=== PATIENT | female | born 1960 | race Hispanic/Latino ===

== ENCOUNTER 2018-09-05 20:47 | Emergency (ER) | payer MEDICARE ==
[2018-09-05] MEDS ORDERED: Naproxen 500 MG TAB PO ONE (23:40)
[2018-09-05] MEDS ORDERED: Oxycodone/Acetaminophen 5/325 mg Tab PO ONE (23:40)
--- NOTE | 2018-09-05 23:43 | ED PDOC ---
Upper Extremity Pain/Injury Time Seen by Provider: 09/05/18 23:18 Chief Complaint (Nursing): Upper Extremity Problem/Injury Chief Complaint (Provider): left wrist pain History Per: Patient History/Exam Limitations: no limitations Onset/Duration Of Symptoms: Hrs (3) Current Symptoms Are (Timing): Still Present Hands/Wrist (Pic): 1 - Tenderness, Swelling, Pain Worse W/Movement Additional Complaint(s): 57 y/o female presents for evaluation of left wrist pain x 3 hours. Patient states she tripped going down her stairs at home and landed with left hand facing downward. Patient reports left-sided weakness as a result of a CVA since 2012. Denies head injury, LOC, limitation of movement. Past Medical History Reviewed: Historical Data, Nursing Documentation, Vital Signs Vital Signs: Last Vital Signs Temp 97.7 F 09/05/18 22:22 Pulse 89 09/05/18 22:22 Resp 16 09/05/18 22:22 BP 131/88 09/05/18 22:22 Pulse Ox 96 09/05/18 22:22 - Medical History PMH: Anxiety (at home medication for this), CVA (2012 with left sided residual weakness, intermittent memory problems ), Depression (at home medication for this), Gastritis, HTN, Hypercholesterolemia, Hypothyroidism (post thyroidectomy), Pulmonary Embolism, Chronic Kidney Disease, TIA - Family History Family History: States: No Known Family Hx - Immunization History Hx Tetanus Toxoid Vaccination: Yes - Home Medications Home Medications: Ambulatory Orders Medication Instructions Recorded Balsalazide [Colazal] 2,250 mg PO TID 02/05/16 Budesonide [Uceris] 9 mg PO QOTHERDAY 02/05/16 Levothyroxine Sodium [Synthroid] 125 mcg PO DAILY 02/05/16 buPROPion XL [Wellbutrin XL] 300 mg PO DAILY 02/05/16 Alprazolam [Xanax] 0.5 mg PO BID PRN 02/06/16 Baclofen [Lioresal] 10 mg PO DAILY PRN 02/06/16 FLUoxetine [Prozac] 20 mg PO DAILY 02/06/16 Ciprofloxacin HCl [Cipro] 500 mg PO BID #28 tab 03/14/16 Naproxen [Naprosyn] 500 mg PO Q12 PRN #20 tablet 09/06/18 oxyCODONE/Acetaminophen [Percocet 1 ea PO Q6 PRN #12 tab 09/06/18 5/325 mg Tab] - Allergies Allergies/Adverse Reactions: Allergies Allergy/AdvReac Type Severity Reaction Status Date / Time No Known Allergies Allergy Verified 09/05/18 22:22 Review of Systems ROS Statement: Except As Marked, All Systems Reviewed And Found Negative Musculoskeletal: Positive for: Hand Pain Physical Exam - Reviewed Nursing Documentation Reviewed: Yes Vital Signs Reviewed: Yes - Physical Exam Appears: Positive for: Well, Non-toxic, No Acute Distress Pulses-Radial (L): 2+ Pulses-Radial (R): 2+ Extremity: Positive for: Normal ROM, Capillary Refill (<3 sec b/l UE), Swelling (diffuse swelling left wrist with tenderness to palpate). Negative for: Deformity Neurologic/Psych: Positive for: Alert, Oriented (x3). Negative for: Motor/Sensory Deficits (chronic left-sided weakness) - ECG O2 Sat by Pulse Oximetry: 96 - Other Rad xray left wrist X-Ray: Viewed By Nh X-Ray Interpretation: +distal radial fracture xray left forearm X-Ray: Viewed By Nh X-Ray Interpretation: no acute findings xray left hand X-Ray: Viewed By Nh X-Ray Interpretation: no acute findings - Progress ED Course And Treament: -xray left forearm -xray left wrist -xray left hand -Percocet PO -Naproxen PO Patient educated on xray findings; Morphine ordered for finger trap application Repeat xray shows improved alignment of fracture s/p finger trap application NV intact. Patient placed in sugar tong splint/sling by ED check. Splint checked by engineering technical writer: NV intact, cap refill <3 sec post application Patient educated on findings, discharged with instructions to follow up with ortho within 2-3 days Rx Naproxen, Percocet given Return precautions given Disposition - Clinical Impression Clinical Impression: Wrist fracture, left - Patient ED Disposition Is Patient to be Admitted: No Counseled Patient/Family Regarding: Studies Performed, Diagnosis, Need For Followup, Rx Given - Disposition Referrals: Steve Wilson III, MD [Staff Provider] - Disposition: Routine/Home Disposition Time: 04:52 Condition: IMPROVED Prescriptions: Naproxen [Naprosyn] 500 mg PO Q12 PRN #20 tablet PRN Reason: Pain, Moderate (4-7) oxyCODONE/Acetaminophen [Percocet 5/325 mg Tab] 1 ea PO Q6 PRN #12 tab PRN Reason: Pain, Severe (8-10) Instructions: Wrist Fracture (DC) Forms: [employer] ([place]ian)
[2018-09-06] MEDS ORDERED: Naproxen 500 MG TAB PO ONE
[2018-09-06] MEDS ORDERED: Oxycodone/Acetaminophen 5/325 mg Tab ONE (00:01)
[2018-09-06] MEDS ORDERED: Morphine 4 MG/ML VIAL ONE (02:32)
[2018-09-06 05:43] VITALS: BP 139/87; PULSE 77; RESP 17; TEMP 98.4; O2SAT 100
--- NOTE | 2018-09-06 08:34 | RAD ---
Date of service: 09/06/2018 PROCEDURE: Left Wrist Radiographs. HISTORY: post finger trap COMPARISON: None. FINDINGS: BONES: Carpal bones are intact without fracture or suspicious lytic or blastic change. Degenerative changes are identified at the basal joint moderately. Lesser degenerative changes seen throughout the remaining joints. Note is made of a Colles fracture distal left radius which is impacted with dorsal angulation. Local soft tissue edema appears mild. JOINTS: No dislocation or subluxation. SOFT TISSUES: Normal. OTHER FINDINGS: None. IMPRESSION: Left wrist Colles fracture sparing the ulnar styloid. Please see discussion above. No dislocation.
--- NOTE | 2018-09-06 08:45 | RAD ---
PROCEDURE: Left Hand Radiographs. HISTORY: fall, pain COMPARISON: None. FINDINGS: BONES: The bones of the left hand appear intact without acute fracture or dislocation identified throughout. Carpal bones appear intact including the navicular bone with degenerative changes seen throughout the carpal joints diffusely, primarily at the basal joint though. There is a Colles fracture affecting the distal left radius with dorsal angulation of the major distal fracture fragment. The ulnar styloid appears intact. Local soft tissue edema appears mild. JOINTS: No subluxation or dislocation. SOFT TISSUES: As above. OTHER FINDINGS: None. IMPRESSION: No left hand fracture appreciated throughout. Colles fracture distal left radius with the carpal bones intact. No dislocation.
--- NOTE | 2018-09-06 08:46 | RAD ---
Date of service: 09/05/2018 PROCEDURE: Radiographs of the Left Forearm HISTORY: fall, pain COMPARISON: None available. TECHNIQUE: Frontal and lateral views obtained. FINDINGS: BONES: Left ulna is intact throughout. There is a Colles fracture of the distal left radius described in greater detail in left wrist radiographs exam performed 09/05/2018 as well. No destructive bony lesion. Local soft tissues appear grossly nonfocal except for the fracture site where there is limited local edema evident. JOINT SPACES: Unremarkable. OTHER FINDINGS: None. IMPRESSION: Colles fracture distal left radius. No dislocation.
--- NOTE | 2018-09-06 08:47 | RAD ---
Date of service: 09/05/2018 PROCEDURE: Left Wrist Radiographs. HISTORY: fall, pain COMPARISON: None. FINDINGS: BONES: Carpal bones appear intact including the navicular bone with degenerative changes seen throughout the carpal joints diffusely, primarily at the basal joint though. There is a Colles fracture affecting the distal left radius with dorsal angulation of the major distal fracture fragment. The ulnar styloid appears intact. Local soft tissue edema appears mild. JOINTS: Normal. No dislocation. SOFT TISSUES: Normal. OTHER FINDINGS: None. IMPRESSION: Colles fracture distal left radius sparing the ulna. Degenerative changes left wrist. No carpal bone fracture.
== END 2018-09-06 05:40 | disposition home or self-care (01) ==
LOC: H.ER 20:47
DX: S62.92XA Unspecified fracture of left hand, initial encounter for closed fracture (principal); W19.XXXA Unspecified fall, initial encounter; Y92.89 Other specified places as the place of occurrence of the external cause; E03.9 Hypothyroidism, unspecified; E78.00 Pure hypercholesterolemia, unspecified; I12.9 Hypertensive chronic kidney disease with stage 1 through stage 4 chronic kidney disease, or unspecified chronic kidney disease; Z86.711 Personal history of pulmonary embolism; Z86.73 Personal history of transient ischemic attack (TIA), and cerebral infarction without residual deficits
CPT/HCPCS: 29125; 73090; 73110; 73130; 96372; 96374; 99284; J2270